=== PATIENT | male | born 1990 | race Caucasian/White ===

== ENCOUNTER 2018-09-21 19:48 | Emergency (ER) | payer SELFPAY ==
[~2018-09-21] VITALS: Ht 167.6 cm; Wt 75.3 kg
[2018-09-21 20:20] VITALS: Ht 167.6 cm; Wt 75.3 kg
[2018-09-21 22:43] VITALS: BP 130/90
== END 2018-09-21 22:48 | disposition home or self-care (01) ==
LOC: ED 19:48
DX: S61.411A Laceration without foreign body of right hand, initial encounter (principal); I10 Essential (primary) hypertension; E11.9 Type 2 diabetes mellitus without complications; W26.0XXA Contact with knife, initial encounter; Y93.89 Activity, other specified; Y92.89 Other specified places as the place of occurrence of the external cause; Y99.8 Other external cause status
CPT/HCPCS: A4570

== ENCOUNTER 2018-09-23 17:11 | Emergency (ER) | payer SELFPAY ==
[~2018-09-23] VITALS: Ht 170.2 cm; Wt 63.5 kg
[2018-09-23 17:44] VITALS: Ht 170.2 cm; Wt 63.5 kg
[2018-09-23 18:04] VITALS: BP 131/80
== END 2018-09-23 18:04 | disposition home or self-care (01) ==
LOC: ED 17:11
DX: S61.411D Laceration without foreign body of right hand, subsequent encounter (principal); I10 Essential (primary) hypertension; E11.9 Type 2 diabetes mellitus without complications; X58.XXXD Exposure to other specified factors, subsequent encounter

== ENCOUNTER 2018-09-29 17:03 | Emergency (ER) | payer SELFPAY ==
[~2018-09-29] VITALS: Ht 167.6 cm; Wt 72.6 kg
[2018-09-29 17:09] VITALS: BP 159/86; Ht 167.6 cm; Wt 72.6 kg
== END 2018-09-29 18:30 | disposition home or self-care (01) ==
LOC: ED 17:03
DX: R03.0 Elevated blood-pressure reading, without diagnosis of hypertension (principal); S61.411D Laceration without foreign body of right hand, subsequent encounter; I10 Essential (primary) hypertension; E11.9 Type 2 diabetes mellitus without complications; X58.XXXD Exposure to other specified factors, subsequent encounter
CPT/HCPCS: A4570